=== PATIENT | female | born 1980 | race Asian ===

== ENCOUNTER → 2017-10-26 | Outpatient (CLI) | payer BC ==
--- NOTE | 2017-10-26 10:24 | DIAGNOSTIC IMAGING REPORT ---
LUMBAR SPINE 5 VIEWS HISTORY: LOWER BACK PAIN COMPARISON: None. FINDINGS: There is no fracture. No subluxation. Mild disc space are at L4-L5 and L5-S1 with tiny and plate osteophytes. The sacrum is intact. IMPRESSION: No fracture or subluxation within the lumbar spine. Mild degenerative changes within the lower lumbar spine. Electronically signed by: Sánchez Jacob M.D. 10/26/2017 10:22 AM Dictated Date/Time: 10/26/2017 10:21 AM
== END | disposition home or self-care (01) ==
LOC: C.RDSM 11:48
PROVIDERS: ATTEND Family Medicine
DX: M85.88 Other specified disorders of bone density and structure, other site (principal); M54.2 Cervicalgia